=== PATIENT | female | born 1995 | race Caucasian/White ===

== ENCOUNTER → 2021-07-16 12:20 | Outpatient (BNVA) | payer OTHER, SELFPAY | PROVIDERS: Family Provider Obstetrics & Gynecology; Visit Provider Obstetrics & Gynecology | DX: Z34.80 Encounter for supervision of other normal pregnancy, unspecified trimester (principal) | CPT/HCPCS: 80307; 84315; 85027; 86592; 86762; 86803; 86850; 86900; 87086; 87340; 87806 ==

== ENCOUNTER → 2021-07-31 15:11 | Outpatient (BNVA) | payer OTHER, SELFPAY | PROVIDERS: Family Provider Obstetrics & Gynecology; Visit Provider Obstetrics & Gynecology | DX: Z34.80 Encounter for supervision of other normal pregnancy, unspecified trimester (principal); Z12.4 Encounter for screening for malignant neoplasm of cervix | CPT/HCPCS: 84315; 87491; 87591; 88175 ==

== ENCOUNTER 2021-09-17 07:19 | Outpatient (CLI) | payer OTHER, SELFPAY ==
--- NOTE | 2021-09-17 07:45 | US_ITS ---
WS: [id number] ULTRASOUND OB COMPLETE TECHNIQUE: Complete ultrasound. CLINICAL INFORMATION: Z34.90 - Encounter for supervision of normal , u... COMPARISON: None. FINDINGS: Closed cervix measuring 3.4 cm Single interuterine gestation is identified with variable presentation. Placenta is anterior fundal. Placenta grade 0. Normal amniotic fluid volume. cardiac activity: 144 BPM. AGA: 20w6d JEROD by ultrasound: 01/29/2022 Estimated weight: 393 g., %. BDP: 4.9 cm = 20w5d HC: 18.0 cm = 20w3d AC: 16.4 cm = 21w3d FEMUR LENGTH: 3.4 cm = 20w5d Anatomic survey:Adequate Four-chamber heart view and outflow tract views could not be obtained. Bladd er also not well visualized. Recommend interval follow-up in one to 2 weeks for additional attempt. Anatomic survey is otherwise normal. Normal stomach. Kidneys normal. Normal 3 vessel cord. Normal 3 v essel cord insertion. Normal spine. Intracranial contents are normal. Normal posterior fossa and cist kandi magna. US/US OB >= 14 weeks fetus [id number] IMPRESSION: 1. Single intrauterine with visualized cardiac activity. AGA 20w6d w ith JEROD 01/29/2022. 2. Placenta is anterior fundal No evidence of abruption or previa. 3. Adequate Four-chamber heart view and outflow tract views could not be obtai misbah. Bladder also not well visualized. Recommend interval follow-up in one to 2 weeks for additional attempt. 4. Anatomic survey otherwise normal. 5. Normal amniotic fluid volume.
== END 2021-09-17 07:20 | disposition home or self-care (01) ==
LOC: RAD 07:19
PROVIDERS: Family Provider Obstetrics & Gynecology; Visit Provider Obstetrics & Gynecology
DX: Z34.90 Encounter for supervision of normal pregnancy, unspecified, unspecified trimester (principal)
CPT/HCPCS: 76805

== ENCOUNTER 2021-10-29 06:54 | Outpatient (CLI) | payer OTHER, MEDICAID, SELFPAY ==
--- NOTE | 2021-10-29 | US_ITS ---
WS: [id number] ULTRASOUND OB FOCUSED HISTORY: FOLLOW UP US ON HEART AND BLADDER COMPARISON: 09/17/2021 Single intrauterine gestation in cephalic position. Cervix is closed at 4.2 cm. Placenta anterior and grade 1. Normal amount of amniotic fluid. heart rate at 150 BPM. Normal appearance of the urinary bladder. heart is abnormal. There is an abnormal configuration of the heart. The RIGHT heart chambers ar e dilated and enlarged. Tricuspid valve is thickened and slightly displaced towards the apex. There i s an asymmetry with respect to the mitral and tricuspid valve. The aorta is small caliber. LEFT outfl ow track is difficult to visualize. The LEFT heart chambers are small. US/US OB limited [id number] IMPRESSION: 1. Abnormal heart. Dilated RIGHT ventricle and abnormal tricuspid valve. 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 2. 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 3. Recommend maternal medicine consult to define anomalies and evaluate for additional anomalies. 4. Normal urinary bladder. Notified Filipe Jackson MD at 10/29/2021 9:28 AM.
== END 2021-10-29 06:55 | disposition home or self-care (01) ==
PROVIDERS: Visit Provider Family Medicine
DX: Z34.80 Encounter for supervision of other normal pregnancy, unspecified trimester (principal); Z3A.00 Weeks of gestation of pregnancy not specified
CPT/HCPCS: 76815

== ENCOUNTER → 2021-11-01 08:20 | Outpatient (BNVA) | payer OTHER, MEDICAID, SELFPAY | PROVIDERS: Visit Provider Family Medicine | DX: Z34.90 Encounter for supervision of normal pregnancy, unspecified, unspecified trimester (principal) | CPT/HCPCS: 82950 ==

== ENCOUNTER → 2021-11-18 07:35 | Outpatient (BNVA) | payer OTHER, SELFPAY | PROVIDERS: Visit Provider Family Medicine | DX: O99.810 Abnormal glucose complicating pregnancy (principal); Z3A.00 Weeks of gestation of pregnancy not specified | CPT/HCPCS: 82951; 82952; 83036 ==

== ENCOUNTER → 2021-12-03 10:28 | Outpatient (BNVA) | payer MEDICAID, SELFPAY | PROVIDERS: PCP Family Medicine; Visit Provider Family Medicine | DX: O09.93 Supervision of high risk pregnancy, unspecified, third trimester; O24.419 Gestational diabetes mellitus in pregnancy, unspecified control; Z3A.00 Weeks of gestation of pregnancy not specified | CPT/HCPCS: 85025 ==

== ENCOUNTER 2021-12-19 09:51 | Outpatient (CLI) | payer MEDICAID, SELFPAY ==
[2021-12-19 10:16] VITALS: BP 133/71; PULSE 102
[2021-12-19 10:22] VITALS: BMI 39.3
[2021-12-19 10:32] VITALS: BP 101/55; PULSE 92
[2021-12-19 10:47] VITALS: BP 103/59; PULSE 95
--- NOTE | 2021-12-19 10:58 | US_ITS ---
WS: [id number] ULTRASOUND OB LIMITED TECHNIQUE: Limited ultrasound examination of the fetus. LMP April 23, 2021 CLINICAL INFORMATION: Heart Defect COMPARISON: October 29, 2021 FINDINGS: Closed cervix measures 4.6 CM. Single interuterine gestation. presentation is transverse Placental location is anterior. Placenta grade: 1 heart rate 138 BPM. Normal LUPILLO 13.5 cm Biophysical profile 8 out of 8. breathin movement: 2 tone: 2 Amniotic fluid: 2 US/US OB BPP NST [id number] IMPRESSION: 1. Normal biophysical profile 8 out of 8 2. Normal LUPILLO 13.5 cm just below the median for gestational age 3. Cervix is long and closed. 4. Transverse presentation.
[2021-12-19 11:02] VITALS: BP 99/51; PULSE 85
== END 2021-12-19 11:32 | disposition home or self-care (01) ==
LOC: OPOB 09:52 → OBGYN 09:52
PROVIDERS: PCP Family Medicine; Visit Provider Family Medicine
DX: O26.93 Pregnancy related conditions, unspecified, third trimester (principal); Z3A.34 34 weeks gestation of pregnancy; Z23 Encounter for immunization
CPT/HCPCS: 59025; 76819; 90715

== ENCOUNTER 2021-12-26 11:06 | Outpatient (CLI) | payer MEDICAID, SELFPAY ==
[2021-12-26] VITALS (8 sets, daily range): BP systolic 80–126; BP diastolic 51–92; PULSE 84–91; BMI 39.6
--- NOTE | 2021-12-26 11:25 | US_ITS ---
WS: [id number] OB ultrasound for biophysical profile, 12/26/2021 Clinical Data: GDM Comparison: OB ultrasound, 12/19/2021. Findings: There is a single intrauterine in the transverse and variable position. The heart rat e is 138 beats per minute. The cervical length is 4.5 and it is closed. The placenta is anterior and fundal. The LUPILLO is 11.34 cm The biophysical profile is 8 of 8 with normal scores for breathing, movement, posture and tone and amniotic fluid volume. US/US OB BPP NST [id number] Impression: 1. Single intrauterine in transverse and variable position. 2. Biophysical profile 8 of 8. 3. heart rate 138 beats per minute.
== END 2021-12-26 13:28 | disposition home or self-care (01) ==
LOC: OPOB 11:06 → OBGYN 11:07
PROVIDERS: PCP Family Medicine; Visit Provider Family Medicine
DX: O26.93 Pregnancy related conditions, unspecified, third trimester (principal); Z3A.35 35 weeks gestation of pregnancy
CPT/HCPCS: 59025; 76819

== ENCOUNTER 2022-01-02 09:54 | Outpatient (CLI) | payer MEDICAID, SELFPAY ==
[2022-01-02 10:00] VITALS: BMI 40.0
[2022-01-02 10:03] VITALS: BP 104/61; PULSE 98
[2022-01-02 10:08] VITALS: RESP 17; TEMP 36.2
[2022-01-02 10:33] VITALS: BP 102/56; PULSE 95
== END 2022-01-02 10:45 | disposition home or self-care (01) ==
LOC: OPOB 09:54 → OBGYN 09:57
PROVIDERS: PCP Family Medicine; Visit Provider Family Medicine
DX: O26.899 Other specified pregnancy related conditions, unspecified trimester (principal); Z3A.00 Weeks of gestation of pregnancy not specified
CPT/HCPCS: 59025

== ENCOUNTER 2022-01-07 10:05 | Outpatient (CLI) | payer MEDICAID, SELFPAY ==
[2022-01-07 10:05] VITALS: BMI 40.2
[2022-01-07 10:22] VITALS: BP 117/74; PULSE 104
[2022-01-07 10:42] VITALS: BP 109/68; PULSE 101
[2022-01-07 11:02] VITALS: BP 111/61; PULSE 100
[2022-01-07 11:23] VITALS: BP 118/77; PULSE 103
[2022-01-07 12:00] VITALS: BP 118/77; PULSE 103; RESP 18
== END 2022-01-07 11:30 | disposition home or self-care (01) ==
LOC: OPOB 10:13 → OBGYN 10:17
PROVIDERS: PCP Family Medicine; Visit Provider Family Medicine
DX: O26.899 Other specified pregnancy related conditions, unspecified trimester (principal); Z3A.00 Weeks of gestation of pregnancy not specified
CPT/HCPCS: 59025; 99211

== ENCOUNTER → 2022-01-08 14:42 | Outpatient (BNVA) | payer MEDICAID, SELFPAY | PROVIDERS: PCP Family Medicine; Visit Provider Family Medicine | DX: Z34.90 Encounter for supervision of normal pregnancy, unspecified, unspecified trimester (principal) | CPT/HCPCS: 87081 ==

== ENCOUNTER → 2022-01-09 12:22 | Outpatient (BNVA) | payer MEDICAID, SELFPAY | PROVIDERS: PCP Family Medicine; Visit Provider Family Medicine | DX: O09.93 Supervision of high risk pregnancy, unspecified, third trimester (principal); O35.8XX0 Maternal care for other (suspected) fetal abnormality and damage, not applicable or unspecified; O24.419 Gestational diabetes mellitus in pregnancy, unspecified control; Z3A.00 Weeks of gestation of pregnancy not specified | CPT/HCPCS: 76819 ==

== ENCOUNTER 2022-01-10 09:44 | Outpatient (CLI) | payer MEDICAID, SELFPAY ==
[2022-01-10 09:55] VITALS: BP 122/60; PULSE 106; TEMP 36
[2022-01-10 10:00] VITALS: RESP 16; TEMP 36.6; BMI 40.6
[2022-01-10 10:18] VITALS: BP 119/56; PULSE 101
[2022-01-10 10:37] VITALS: BP 117/56; PULSE 100
== END 2022-01-10 10:45 | disposition home or self-care (01) ==
LOC: OPOB 09:50 → OBGYN 09:50
PROVIDERS: PCP Family Medicine; Visit Provider Family Medicine
DX: O26.899 Other specified pregnancy related conditions, unspecified trimester (principal); Z3A.00 Weeks of gestation of pregnancy not specified
CPT/HCPCS: 59025